=== PATIENT | male | born 1980 | race Two or more races ===

== ENCOUNTER 2024-05-12 10:48 | Emergency (ER) | payer SELFPAY ==
[~2024-05-12] VITALS: Ht 175.3 cm; Wt 63.5 kg
[2024-05-12] MEDS: IV NORMAL SALINE 1000 ML BAG IV ONE (11:41)
[2024-05-12 11:45] VITALS: O2SAT 84
[2024-05-12] MEDS ORDERED: NEOMY/BACITRA/POLYMYXIN B OINT UD PACKET TP ONE (14:30)
== END 2024-05-12 14:08 ==
LOC: ER 10:57
DX: I46.9 Cardiac arrest, cause unspecified (principal); T40.411A Poisoning by fentanyl or fentanyl analogs, accidental (unintentional), initial encounter; E88.A Wasting disease (syndrome) due to underlying condition; Z79.899 Other long term (current) drug therapy; Y92.89 Other specified places as the place of occurrence of the external cause
CPT/HCPCS: 99291; 92960; 92950; 31500; 93005; J7040; 70030-TC; 94760; A4606; A4663; C1758